=== PATIENT | male | born 1985 | race Two or more races ===

== ENCOUNTER 2016-10-02 18:57 | Emergency (ER) | payer SELFPAY ==
[~2016-10-02] VITALS: Ht 167.6 cm; Wt 77.0 kg
[2016-10-02 19:10] VITALS: BP 135/92
[2016-10-02 21:28] LABS: CLARITY URINE CLEAR (CLEAR); COLOR URINE YELLOW (YELLOW); GLUCOSE URINE NEGATIVE (NEGATIVE); KETONES URINE NEGATIVE (NEGATIVE); LEUKOCYTE ESTERASE URINE NEGATIVE (NEGATIVE); NITRITE URINE NEGATIVE (NEGATIVE); OCCULT BLOOD URINE 1+ (NEGATIVE); PROTEIN URINE NEGATIVE (NEGATIVE); SPECIFIC GRAVITY URINE 1.022 (1.005-1.030); UROBILINOGEN URINE 0.2 E.U./dL (0.2-1.0)
[2016-10-03] MEDS ORDERED: LIDOCAINE HCL 1% 20ML VIAL (Pyxis) INJ INFIL ONE (01:30)
[2016-10-03] MEDS ORDERED: CEFTRIAXONE SODIUM 250 MG/VIAL IM ONE (01:30)
[2016-10-05 13:11] LABS: NEISSERIA GONORRHOEAE NAA Negative (Negative)
[2016-10-05 14:20] LABS: CHLAMYDIA TRACHOMATIS NAA Positive (Negative)
== END 2016-10-03 01:53 | disposition home or self-care (01) ==
LOC: ER 10-03 00:11
DX: N39.9 Disorder of urinary system, unspecified (principal)
CPT/HCPCS: 81001; 87086; 87491; 87591; 96372; 99284; J0696; J3490; Z7610